=== PATIENT | female | born 1955 | race Caucasian/White ===

== ENCOUNTER 2016-04-20 09:30 | Inpatient (IN) | payer MEDICARE ==
[~2016-04-20] VITALS: Ht 167.6 cm; Wt 137.9 kg
[~2016-04-20 09:30] MED LIST: BREO ELLIPTA 11 EACH INH; CELEXA20 MG PO; HYDROCODON-ACE1 EAC7 PO; IPRAT-ALBUT 0.5-3 ML UPD; KEPPRA250 MG PO; LEVOTHYROXINE137 MCG PO; MOBIC7.5 MG PO; NORCO 10/325 TA1 TA1 PO; PRAVASTATIN SOD10 MG PO; PROPRANOLOL HCL20 MG PO; SYMBICORT 80-10.2 GM INH; SYNTHROID137 MCG PO; VENTOLIN HFA18 GM INH; WELLBUTRIN100 MG PO
[2016-04-20 10:21] LABS: ANION GAP 10.3 mmol/L (8-16); CALCIUM 8.6 mg/dL (8.5-10.1); CARBON DIOXIDE 30.5 mmol/L (21.0-32.0); POTASSIUM - SERUM 4.8 mmol/L (3.5-5.1)
[2016-04-20 10:24] LABS: BASOPHILS 0.7 % (0.0-2.0); EOSINOPHILS 1.8 % (0-7); HEMOGLOBIN 13.7 g/dL (12-16); IMMATURE GRANULOCYTES 0.3 % (0-5); LYMPHOCYTES 32.7 % (15-50); MCH 29.9 pg (26.0-34.0); MCHC 31.9 g/dL (31.0-37.0); MCV 93.9 fL (80.0-100.0); MEAN PLATELET VOLUME 10.8 fL (7.4-10.4); MONOCYTES 6.9 % (2-11); NEUTROPHILS 57.6 % (40-80); PLATELET COUNT 215 10x3/uL (130-400); RBC 4.58 10x6/uL (4.00-5.40); RDW 12.4 % (11.5-14.5); WBC 7.2 10x3/uL (4.8-10.8)
[2016-04-20 10:28] LABS: APTT 27.2 SECONDS (22.8-39.4); INR 0.99 (0.85-1.17); PROTIME 12.9 SECONDS (11.6-15.0)
[2016-04-20 10:34] LABS: APPEARANCE CLEAR (CLEAR); BACTERIA FEW /hpf (NONE SEEN); BILIRUBIN NEGATIVE (NEGATIVE); COLOR YELLOW (YELLOW); EPITHELIAL CELLS 0-5 /hpf (0-5); GLUCOSE NEGATIVE (NEGATIVE); KETONE NEGATIVE (NEGATIVE); LEUKOCYTE ESTERASE NEGATIVE (NEGATIVE); MUCUS <1+ /lpf (NONE SEEN); NITRITE NEGATIVE (NEGATIVE); PROTEIN TRACE mg/dL (NEGATIVE); RED CELLS - URINE OCC /hpf (0-5); SPECIFIC GRAVITY 1.025 (1.005-1.020); WHITE CELLS - URINE RARE /hpf (0-5)
[2016-04-25] VITALS (12 sets, daily range): BP systolic 93–136; BP diastolic 50–71; BMI 49.1
--- NOTE | 2016-04-25 08:25 | NUR ---
[address] MICHAUD AND ANESTHESIA.
--- NOTE | 2016-04-25 09:42 | NUR ---
ORTHO PEG BOARD USED FOR POSITIONING PT LATERALLY. RT HIP,LEG AND FOOT WASHED WITH HIBICLENS AND ALCOHOL PRIOR TO CHLORPREP PER DN
--- NOTE | 2016-04-25 13:05 | NUR ---
PT RECIEVED FROM PACU. HARD TO AROUSE BUT WILL SLOWLY. NO NARCOTICS ON BOARD AT THIS MOMENT. LUNG SOUNDS DIMINSHED ALL LOBES OXYGEN AT 3LNC. OXYGEN CANNULA PLACED IN MOUTH DUE TO MOUTH BREATHING. SCDS ON BILAT. PROVENA WOUND VAC NOTED TO RIGHT HIP. CALL LIGHT IN REACH. BED ALARM ON DUE TO PATIENT SAFETY. FAMILY AT BEDSIDE
--- NOTE | 2016-04-25 18:17 | NUR ---
NO NEEDS AT THIS TIME FOR PATIENT. STATES FEELS GOOD AND NO PAIN. BED ALARM ON FOR SAFETY
--- NOTE | 2016-04-25 19:35 | NUR ---
RECIEVED SHIFT REPORT. PT IS LYING IN BED. ALERT AND ORIENTED AND ABLE TO VERBALIZE NEEDS. IV IS PATENT AND FLUIDS ARE RUNNING PER ORDER. O2 @ 3 PER NASAL CANNULA. DRESSING TO RIGHT HIP C/D/I. PROVENA WOUND VAC IN PLACE. PT DENIES ANY PAIN AT THIS TIME. NO NEEDS ARE VERBALIZED AT THIS TIME. WILL CONTINUE TO MONITOR. SIDE RAILS ARE UP X 2. BED IS IN LOWEST POSITION. BED ALARM IS ON FOR SAFETY. CALL LIGHT IS WITHIN REACH.
--- NOTE | 2016-04-25 23:27 | NUR ---
SHIFT ASSESSMENT COMPLETED. NIGHT MEDS GIVEN WITH NO PROBLEMS. NO NEEDS ARE VOICED. WILL MONITOR. SIDE RAILS X 2. BED LOW. BED ALARM ON. CALL LIGHT IN REACH.
[2016-04-26 05:00] VITALS: BP 129/66
[2016-04-26 05:51] LABS: BASOPHILS 0.2 % (0.0-2.0); EOSINOPHILS 0 % (0-7); HEMATOCRIT 38.5 % (36.0-48.0); HEMOGLOBIN 11.7 g/dL (12-16); IMMATURE GRANULOCYTES 0.2 % (0-5); LYMPHOCYTES 12.1 % (15-50); MCH 28.9 pg (26.0-34.0); MCHC 30.4 g/dL (31.0-37.0); MCV 95.1 fL (80.0-100.0); MEAN PLATELET VOLUME 10.5 fL (7.4-10.4); MONOCYTES 9.3 % (2-11); NEUTROPHILS 78.2 % (40-80); PLATELET COUNT 201 10x3/uL (130-400); RBC 4.05 10x6/uL (4.00-5.40); RDW 12.4 % (11.5-14.5); WBC 13.2 10x3/uL (4.8-10.8)
[2016-04-26 06:04] LABS: ALBUMIN 2.7 g/dL (3.4-5.0); ANION GAP 10.8 mmol/L (8-16); BILIRUBIN - TOTAL 0.28 mg/dL (0.2-1.3); CALCIUM 8.5 mg/dL (8.5-10.1); CREATININE - SERUM 1.1 mg/dL (0.6-1.3); POTASSIUM - SERUM 4.8 mmol/L (3.5-5.1)
[2016-04-26 08:11] VITALS: BP 123/61
--- NOTE | 2016-04-26 08:19 | NUR ---
PT SEEN AND ASSESSED. COMPLAINTS OF MILD PAIN07/10. PROVENA WOUND VAC NOTED TO RIGHT HIP. ICE CURRENTLY IN PLACE ALSO. ABLE TO MOVE TOES FREELY AND ARE WARM AND PINK. BED ALARM ON FOR SAFETY. CALL LIGHT IN PLACE
--- NOTE | 2016-04-26 10:50 | NUR ---
WOUND CARE CONSULT: PT IS S/P RIGHT TOTAL HIP ON 04/[address] MICHAUD. PREVENA DRESSING - INCISION MGMT SYSTEM IN PLACE OVER RIGHT HIP INCISION. NO COMPLAINTS OR QUESTIONS. WILL MONITOR NEEDED.
--- NOTE | 2016-04-26 11:21 | NUR ---
* Is the patient Alert and Oriented? Yes 0 * How many steps to enter\exit or inside your home? Ramp 0 * PCP Dr. Singh 0 * Pharmacy [address] 0 * Preadmission Environment Home with Family 0 * ADLs Independent 0 * Equipment Nebulizer Oxygen 0 * List name and contact numbers for known caregivers / representatives who currently or will assist patient after discharge: Spouse - Johnson [phone] 0 * Additional services required to return to the preadmission environment? Yes 0 * Can the patient safely return to the preadmission environment? Yes 0 * Has this patient been hospitalized within the prior 30 days at any hospital? No 04/26/2016 11:25 DCP: Discharge Planning Patient Name: MAC KRAUS Admission Status: Elective Accout number: [id number] Admission Date: 04-25-2016 : 1955 Admission Diagnosis: Attending: WALTER Current LOS: 1 Anticipated DC Date: 04-27-2016 Planned Disposition: Outpatient PT\OT Primary Insurance: [facility] Discharge Planning Comments: CM met with patient to assess dc plans/needs. Patient states she lives at home with her , Johnson. She was independent with ADL's prior to admission. She has a cane & home O2 & Nebs at home. A rolling walker has been ordered by MD office prior to admission through [facility] & will be delivered to hospital prior to dc. She has chosen [facility] for outpatient physical therapy. Appt. scheduled 04/28 @ 1500 - Rx faxed. Anticipate dc tomorrow afternoon. CM will follow. Flosser: Eva Murphy
[2016-04-26 12:13] VITALS: BP 124/54
[2016-04-26 12:49] VITALS: Ht 167.6 cm; Wt 137.9 kg
[2016-04-26 15:59] VITALS: BP 116/62
--- NOTE | 2016-04-26 18:15 | NUR ---
PT UNABLE TO VOID. IN AND OUT CATHETERIZED WITH 600 CC URINE RETURNED. STATES FEELS BETTER. PROVENA WOUND VAC STILL IN PLACE. NO COMPLAINTS AT PRESENT. BED ALARM ON FOR SAFETY
[2016-04-26 19:00] VITALS: BP 127/59
--- NOTE | 2016-04-26 19:20 | NUR ---
RECIEVED SHIFT REPORT. PT IS LYING IN BED. ALERT AND ORIENTED AND ABLE TO VERBALIZE NEEDS. IV IS PATENT AND SALINE LOC AT THIS TIME. PT HAS BEEN AMBULATORY WITH ASSISTANCE. DRESSING TO RIGHT HIP C/D/I. PROVENA WOUND VAC IN PLACE. O2 @ 3 PER NASAL CANNULA. PT STATES PAIN IS 4/10. NO NEEDS ARE VERBALIZED AT THIS TIME. WILL CONTINUE TO MONITOR. SIDE RAILS ARE UP X 2. BED IS IN LOWEST POSITION. BED ALARM IS ON FOR SAFETY. CALL LIGHT IS WITHIN REACH.
--- NOTE | 2016-04-26 21:57 | NUR ---
SHIFT ASSESSMENT COMPLETED. NIGHT MEDS GIVEN WITH NO PROBLEMS. NO NEEDS ARE VOICED. WILL MONITOR. SIDE RAILS UP X 2. BED IS LOW. BED ALARM ON. CALL LIGHT IN REACH.
--- NOTE | 2016-04-27 03:03 | NUR ---
PT STATES POSSIBLE URGE TO VOID. ASSITED X 3 ASSIST AND WALKER TO BEDSIDE COMMODE. PT VOID 200ML CONCENTRATED URINE. PT VERBALIZED WANT TO SIT UP IN CHAIR. ASSITED TO CHAIR WITH SAME ASSIST. FRESH GLASS ICE WATER PROVIDED. NO FURTHER NEEDS AT THIS TIME. WILL MONITOR. CALL LIGHT AND OTHER PERSONAL ITEMS PLACED IN REACH AT THIS TIME.
[2016-04-27 05:20] LABS: BASOPHILS 0.2 % (0.0-2.0); EOSINOPHILS 0.7 % (0-7); HEMATOCRIT 35.6 % (36.0-48.0); HEMOGLOBIN 10.8 g/dL (12-16); IMMATURE GRANULOCYTES 0.3 % (0-5); LYMPHOCYTES 20.7 % (15-50); MCH 29.1 pg (26.0-34.0); MCHC 30.3 g/dL (31.0-37.0); MONOCYTES 8.8 % (2-11); NEUTROPHILS 69.3 % (40-80); PLATELET COUNT 168 10x3/uL (130-400); RBC 3.71 10x6/uL (4.00-5.40); RDW 12.8 % (11.5-14.5); WBC 11.4 10x3/uL (4.8-10.8)
[2016-04-27 05:48] LABS: ALBUMIN 2.5 g/dL (3.4-5.0); ANION GAP 8.8 mmol/L (8-16); BILIRUBIN - TOTAL 0.24 mg/dL (0.2-1.3); CALCIUM 8.5 mg/dL (8.5-10.1); CARBON DIOXIDE 30.6 mmol/L (21.0-32.0); CREATININE - SERUM 1.2 mg/dL (0.6-1.3); POTASSIUM - SERUM 4.4 mmol/L (3.5-5.1); PROTEIN - SERUM 5.6 g/dL (6.4-8.2)
--- NOTE | 2016-04-27 07:00 | NUR ---
REPORT RECIEVED ASSUMED CARE. PATIENT IN BED WITH IV INTACT. NO COMPLAINTS. CALL LIGHT WITHIN REACH. BSCDS ON AND WORKING. BED ALARM ON.
[2016-04-27 07:59] VITALS: BP 124/66
--- NOTE | 2016-04-27 08:25 | NUR ---
PATIENT ASSESSMENT COMPLETE, VS STABLE. WOUND VAC TO RIGHT HIP INTACT. NO COMPLAINTS AT THIS TIME. NO REDNESS NOTED TO BACK OR BUTTOCKS. ASSISTED PATIENT UP TO BSC WITH PT. CALL LIGHT WITHIN REACH.
--- NOTE | 2016-04-27 08:25 | OP ---
PATIENT NAME: MAC KRAUS MEDICAL RECORD: [id number] :[birth year] LOCATION:D.MS [id number] ADMISSION DATE:04/25/16 SURGEON: XIAO GERARD MD DATE OF OPERATION: 04/25/2016 PREOPERATIVE DIAGNOSIS: Right hip degenerative joint disease. POSTOPERATIVE DIAGNOSIS: Right hip degenerative joint disease. PROCEDURE PERFORMED: Right total hip arthroplasty. SURGEON: Garland Gerard MD ANESTHESIA: General with a block for postop pain. CONDITION: She tolerated the procedure well and was transferred to the recovery room in stable condition at termination of procedure. INDICATIONS: This is a 61-year-old morbidly obese female with significant degenerative changes in her hip. She is no longer tolerating her hip pain. She wants to proceed with a hip replacement. We discussed risks, benefits, and alternatives including blood loss, scar, pain, infection, need for further procedure, anesthesia risk, nerve, artery and vein injuries. She understood and wished to proceed. OPERATIVE REPORT: The patient was taken to the operating room, placed in supine position. General anesthesia was obtained. She had the block placed in the preop holding area. In the operating room, the right hip was confirmed to be the correct joint, following which she was prepped and draped in the normal fashion. She was placed in lateral position with the right hip up. She did receive her Ancef per protocol. The hip was prepped in a normal fashion followed by secondary ChloraPrep and then Ioban dressing placement. After this was accomplished, a lateral incision was made. This was taken down to the IT band, which was very deep with a very large layer of obesity. I then proceeded to split her IT band. After ____, I took off the edge portion of the gluteus medius and the capsule as a unit. The hip was dislocated. The femoral head was removed. Anterior and posterior acetabular retractors were placed. The soft tissue was removed from about the acetabular rim. Once this was accomplished, I then proceeded to ream up to a size 51 and then placed a 52 press fit cup. This fit very well. I then took the leg off at the side bed, broached up to an 11 and trialed with an 11 standard neck. We did take x-rays, this did show that it looked to be a little bit short. We therefore decided to place a high offset with a +3. This was placed with an 11 stem. She was reduced, but good overall. I copiously irrigated, following which I placed the gluteus medius capsule back to the greater trochanter with 2 JuggerKnot suture anchors. I then closed the IT band with #5 Ethibond. I then closed with 2-0 Vicryl and peewee and placed Prevena dressing. Certainly, I then proceeded to flip her back this to supine position, awakened and returned back to the recovery room in stable condition. This was very difficult secondary to her morbid obesity. TRANSINT:[id number] Voice Confirmation ID: [id number] DOCUMENT ID: [id number] OPERATIVE REPORT [id number] MAC KRAUS, XIAO PERDUE MD at 0825 CC: [id number] DICTATION DATE: 04/25/16 1106 DYE HOUSE WHEEL OPERATOR: 04/25/16 1128 ADM IN [facility] [address] [place] [address]
--- NOTE | 2016-04-27 08:39 | NUR ---
PATIENT UP AMBULATING IN [facility] WITH PT. NO PROBLEMS AT THIS TIME.
[2016-04-27] MEDS ORDERED: ELIQUIS2.5 MG PO (11:01)
[2016-04-27] MEDS ORDERED: OXYCODONE HCL5 MG PO (11:03)
--- NOTE | 2016-04-27 13:23 | NUR ---
04/27/2016 13:14 DCP: Discharge Planning Patient Name: MAC KRAUS Encounter No: [id number] : 1955 Primary Insurance: [facility] Anticipated DC Date: 04-27-2016 Planned Disposition: Outpatient PT\OT External Planned Provider: [facility] DCP follow-up note: Patient experiencing increase in pain. Ambulated well with physical therapy but had a difficult time getting back into bed. Discussed with patient & interdisciplinary team - will hold discharge until tomorrow. OP physical therapy appt. changed to 05/02 @ 1400 @ [facility]. Patient and family in agreement with discharge plan. Case management will follow and assist as needed. Eva Murphy
[2016-04-27 15:38] VITALS: BP 114/59
--- NOTE | 2016-04-27 20:36 | NUR ---
PATIENT IN SEMI-FOWLERS POSTION. PATIENT STATED SHE DOES NOT NEED ANYTHING AT THIS TIME.
[2016-04-28 05:30] LABS: BASOPHILS 0.1 % (0.0-2.0); EOSINOPHILS 2.3 % (0-7); HEMATOCRIT 34.8 % (36.0-48.0); HEMOGLOBIN 10.4 g/dL (12-16); IMMATURE GRANULOCYTES 0.1 % (0-5); LYMPHOCYTES 21.8 % (15-50); MCH 28.8 pg (26.0-34.0); MCHC 29.9 g/dL (31.0-37.0); MCV 96.4 fL (80.0-100.0); MEAN PLATELET VOLUME 10.8 fL (7.4-10.4); MONOCYTES 8.7 % (2-11); PLATELET COUNT 174 10x3/uL (130-400); RBC 3.61 10x6/uL (4.00-5.40); RDW 12.9 % (11.5-14.5); WBC 10.1 10x3/uL (4.8-10.8)
[2016-04-28 05:58] LABS: ALBUMIN 2.5 g/dL (3.4-5.0); ANION GAP 9.7 mmol/L (8-16); BILIRUBIN - TOTAL 0.33 mg/dL (0.2-1.3); CALCIUM 8.5 mg/dL (8.5-10.1); CARBON DIOXIDE 30.7 mmol/L (21.0-32.0); POTASSIUM - SERUM 4.4 mmol/L (3.5-5.1); PROTEIN - SERUM 5.8 g/dL (6.4-8.2)
[2016-04-28 08:03] VITALS: BP 110/54
--- NOTE | 2016-04-28 08:40 | NUR ---
04/28/2016 8:37 DCP: Discharge Planning Patient Name: MAC KRAUS Encounter No: [id number] : 1955 Primary Insurance: [facility] Anticipated DC Date: 04-27-2016 Planned Disposition: Outpatient PT\OT External Planned Provider: [facility] DCP follow-up note: DC Order rec'd. Patient had a better night & is ready to go home. Patient and family in agreement with discharge plan. No changes to plan. Eva Murphy
[2016-04-28] MEDS ORDERED: ULTRAM50 MG PO (10:24)
--- NOTE | 2016-04-28 11:00 | NUR ---
PATIENT RECIEVED DISCHARGE INSTRUCTIONS. VERBALIZED UNDERSTANDING. NO QUESTIONS AT THIS TIME. IV REMOVED WITH CATH TIP INTACT. PRESCRIPTION GIVEN TO PATIENT. AWAITING WC FOR DC. CALL LIGHT WITHIN REACH.
--- NOTE | 2016-05-03 07:00 | DS ---
PATIENT:MAC KRAUS :[birth year] MEDICAL RECORD: [id number] DISCHARGE SUMMARY ADMISSION DATE: 04/25/16 DISCHARGE DATE: 04/28/16 ADMITTING DIAGNOSES: 1. Right hip degenerative joint disease. 2. Morbid obesity. DISCHARGE DIAGNOSES: 1. Right hip degenerative joint disease. 2. Morbid obesity. 3. Postoperative acute blood loss anemia. HISTORY OF PRESENT ILLNESS: This is a 61-year-old female with advanced degenerative changes of her right hip. She presents for a right total hip arthroplasty. She has actually done very well postoperatively. She has ____, but she has been able to get up with assistance. It is felt that she is at a juncture, she can be discharged to home to continue on total hip arthroplasty protocols outpatient. She is going to continue on Eliquis for anticoagulation and pain medications. She does have a Prevena dressing on this and is to stay on until the failure of the batteries at which time, she needs to change the dressing. This needs to be clean and dry, otherwise. She is to see me back in the office in about 2 weeks, call if she is having any problems. TRANSINT:[id number] Voice Confirmation ID: [id number] DOCUMENT ID: [id number] XIAO MICHAUD MD at 0700 CC: [id number] DICTATION DATE: 04/27/16819 COUNTER CLERK [employer]: 04/27/16 0849 DIS IN 04/28/16 [place] [id number] [place] [id number]
== END 2016-04-28 14:25 | disposition home or self-care (01) | DRG 470 ==
LOC: D.SDCHOLD 09:30 → D.MS 04-25 06:06 → D.SDCHOLD 04-25 07:30 → D.MS 04-25 09:13 → D.SDCHOLD 04-25 09:15 → D.MS 04-28 14:25
PROVIDERS: Family Medicine; ADMIT Orthopaedic Surgery Sports Medicine
PROC: 0SR90JA Replacement of Right Hip Joint with Synthetic Substitute, Uncemented, Open Approach (ICD-10-PCS; principal; 2016-04-25 09:15)
DX: M16.11 Unilateral primary osteoarthritis, right hip (principal); Z68.42 Body mass index [BMI] 45.0-49.9, adult; D62 Acute posthemorrhagic anemia; E66.01 Morbid (severe) obesity due to excess calories; J44.9 Chronic obstructive pulmonary disease, unspecified; E03.9 Hypothyroidism, unspecified; I50.9 Heart failure, unspecified

== ENCOUNTER → 2016-08-17 07:26 | Outpatient (CLI) | payer MEDICARE ==
[2016-04-26 12:49] VITALS: BMI 49.0
[~2016-08-17 07:26] MED LIST changes: +ELIQUIS2.5 MG PO; +OXYCODONE HCL5 MG PO; +ULTRAM50 MG PO
== END | disposition home or self-care (01) ==
LOC: D.RT 07:26
DX: J98.11 Atelectasis (principal)

== ENCOUNTER 2016-11-17 21:55 | Emergency (ER) | payer MEDICARE ==
[2016-04-26 12:49] VITALS: BMI 49.0
[2016-11-17 22:47] LABS: BASOPHILS 0.6 % (0-2); EOSINOPHILS 2.7 % (0-7); HEMATOCRIT 41.6 % (36.0-48.0); IMMATURE GRANULOCYTES 0.4 % (0-5); LYMPHOCYTES 34.4 % (15-50); MCH 29.7 pg (26.0-34.0); MCHC 31.3 g/dL (31.0-37.0); MEAN PLATELET VOLUME 9.9 fL (7.4-10.4); MONOCYTES 6.1 % (2-11); NEUTROPHILS 55.8 % (40-80); PLATELET COUNT 208 10x3/uL (130-400); RBC 4.38 10x6/uL (4.00-5.40); RDW 12.9 % (11.5-14.5); WBC 8.2 10x3/uL (4.8-10.8)
[2016-11-17 22:54] LABS: ANION GAP 8.5 mmol/L (8-16); CALCIUM 8.8 mg/dL (8.5-10.1); CARBON DIOXIDE 32.8 mmol/L (21.0-32.0); CREATININE - SERUM 1.1 mg/dL (0.6-1.3); POTASSIUM - SERUM 4.3 mmol/L (3.5-5.1)
== END 2016-11-18 00:25 | disposition home or self-care (01) ==
LOC: D.ER 21:55
PROVIDERS: Nurse Practitioner Acute Care
DX: G44.209 Tension-type headache, unspecified, not intractable (principal); M54.12 Radiculopathy, cervical region; M54.2 Cervicalgia

== ENCOUNTER → 2016-12-20 13:33 | Outpatient (CLI) | payer MEDICARE ==
[2016-04-26 12:49] VITALS: BMI 49.0
== END | disposition home or self-care (01) ==
LOC: D.MRI 13:33
DX: R51 Headache (principal)

== ENCOUNTER 2017-04-12 19:11 | Inpatient (IN) | payer MEDICARE ==
[~2017-04-12] VITALS: Ht 167.6 cm; Wt 147.4 kg
[2017-04-12 21:14] LABS: BASOPHILS 0.1 % (0-2); EOSINOPHILS 0.1 % (0-7); HEMATOCRIT 45.9 % (36.0-48.0); HEMOGLOBIN 14.3 g/dL (12-16); IMMATURE GRANULOCYTES 0.3 % (0-5); LYMPHOCYTES 7.8 % (15-50); MCH 29.5 pg (26.0-34.0); MCHC 31.2 g/dL (31.0-37.0); MCV 94.6 fL (80.0-100.0); MEAN PLATELET VOLUME 9.9 fL (7.4-10.4); MONOCYTES 8.9 % (2-11); NEUTROPHILS 82.8 % (40-80); PLATELET COUNT 207 10x3/uL (130-400); RBC 4.85 10x6/uL (4.00-5.40); RDW 12.9 % (11.5-14.5); WBC 19.2 10x3/uL (4.8-10.8)
[2017-04-12 21:34] LABS: ALBUMIN 3.6 g/dL (3.4-5.0); ANION GAP 7.8 mmol/L (8-16); BILIRUBIN - TOTAL 0.72 mg/dL (0.2-1.3); CALCIUM 9.5 mg/dL (8.5-10.1); CARBON DIOXIDE 30.5 mmol/L (21.0-32.0); CREATININE - SERUM 1.1 mg/dL (0.6-1.3); POTASSIUM - SERUM 4.3 mmol/L (3.5-5.1); PROTEIN - SERUM 7.5 g/dL (6.4-8.2)
[2017-04-13] MEDS ORDERED: MOBIC7.5 MG PO (00:40)
[2017-04-13] MEDS ORDERED: SINGULAIR10 MG PO (00:40)
[2017-04-13 00:42] VITALS: BP 120/85; BMI 52.5
[2017-04-13 04:00] VITALS: BP 115/59
[2017-04-13 06:33] LABS: HEMATOCRIT 42.6 % (36.0-48.0); HEMOGLOBIN 13.3 g/dL (12-16); MCH 29.6 pg (26.0-34.0); MCHC 31.2 g/dL (31.0-37.0); MCV 94.7 fL (80.0-100.0); MEAN PLATELET VOLUME 9.9 fL (7.4-10.4); PLATELET COUNT 191 10x3/uL (130-400); RDW 12.8 % (11.5-14.5); WBC 20.1 10x3/uL (4.8-10.8)
[2017-04-13 06:34] LABS: ALBUMIN 3.1 g/dL (3.4-5.0); ANION GAP 13.4 mmol/L (8-16); BILIRUBIN - TOTAL 0.49 mg/dL (0.2-1.3); CARBON DIOXIDE 26.9 mmol/L (21.0-32.0); POTASSIUM - SERUM 4.3 mmol/L (3.5-5.1); PROTEIN - SERUM 7.2 g/dL (6.4-8.2)
[2017-04-13 06:41] LABS: CREATININE - SERUM 1.5 mg/dL (0.6-1.3)
[2017-04-13 07:02] LABS: HYPOCHROMASIA OCC; LYMPHOCYTES 8 % (15-50); MONOCYTES 5 % (2-11); NEUTROPHILS 81 % (40-80); PLATELET ESTIMATE NORMAL; ROULEAUX OCC
[2017-04-13 08:57] VITALS: BP 101/59
[2017-04-13 12:56] VITALS: BP 120/66
[2017-04-13 14:19] VITALS: Ht 167.6 cm; Wt 147.4 kg
[2017-04-13 15:38] LABS: APPEARANCE CLEAR (CLEAR); BILIRUBIN NEGATIVE (NEGATIVE); COLOR DK YELLOW (YELLOW); GLUCOSE NEGATIVE (NEGATIVE); KETONE NEGATIVE (NEGATIVE); NITRITE NEGATIVE (NEGATIVE); PROTEIN NEGATIVE (NEGATIVE); SPECIFIC GRAVITY 1.025 (1.005-1.020); UROBILINOGEN NORMAL (NORMAL)
[2017-04-13 16:45] VITALS: BP 118/59
[2017-04-13 20:00] VITALS: BP 123/68
[2017-04-14] VITALS: BP 136/66
[2017-04-14 06:32] LABS: BASOPHILS 0.1 % (0-2); EOSINOPHILS 0.1 % (0-7); HEMATOCRIT 40.2 % (36.0-48.0); HEMOGLOBIN 12.4 g/dL (12-16); IMMATURE GRANULOCYTES 0.3 % (0-5); LYMPHOCYTES 15.9 % (15-50); MCH 29.5 pg (26.0-34.0); MCHC 30.8 g/dL (31.0-37.0); MCV 95.5 fL (80.0-100.0); MEAN PLATELET VOLUME 10.4 fL (7.4-10.4); MONOCYTES 6.3 % (2-11); NEUTROPHILS 77.3 % (40-80); PLATELET COUNT 197 10x3/uL (130-400); RBC 4.21 10x6/uL (4.00-5.40); WBC 18.4 10x3/uL (4.8-10.8)
[2017-04-14 07:15] LABS: ALBUMIN 3.1 g/dL (3.4-5.0); BILIRUBIN - TOTAL 0.18 mg/dL (0.2-1.3); CREATININE - SERUM 1.8 mg/dL (0.6-1.3); PROTEIN - SERUM 6.9 g/dL (6.4-8.2)
[2017-04-14 08:34] VITALS: BP 129/72
[2017-04-14 12:05] VITALS: BP 129/64
[2017-04-14 16:17] VITALS: BP 139/71
[2017-04-14 22:01] VITALS: BP 128/70
[2017-04-15 00:43] VITALS: BP 127/70
[2017-04-15 05:02] VITALS: BP 131/64
[2017-04-15 05:56] LABS: BASOPHILS 0.1 % (0-2); EOSINOPHILS 0.6 % (0-7); HEMATOCRIT 36.1 % (36.0-48.0); HEMOGLOBIN 10.9 g/dL (12-16); IMMATURE GRANULOCYTES 0.2 % (0-5); LYMPHOCYTES 14.5 % (15-50); MCH 29.1 pg (26.0-34.0); MCHC 30.2 g/dL (31.0-37.0); MCV 96.3 fL (80.0-100.0); MEAN PLATELET VOLUME 10.1 fL (7.4-10.4); MONOCYTES 9.1 % (2-11); NEUTROPHILS 75.5 % (40-80); PLATELET COUNT 178 10x3/uL (130-400); RBC 3.75 10x6/uL (4.00-5.40); RDW 13.2 % (11.5-14.5)
[2017-04-15 06:06] LABS: WBC 13.7 10x3/uL (4.8-10.8)
[2017-04-15 06:31] LABS: ALBUMIN 2.7 g/dL (3.4-5.0); ANION GAP 12.7 mmol/L (8-16); BILIRUBIN - TOTAL 0.2 mg/dL (0.2-1.3); CALCIUM 8.2 mg/dL (8.5-10.1); CREATININE - SERUM 1.2 mg/dL (0.6-1.3); POTASSIUM - SERUM 4.7 mmol/L (3.5-5.1); PROTEIN - SERUM 5.6 g/dL (6.4-8.2)
[2017-04-15 09:30] VITALS: BP 138/73
[2017-04-15] MEDS ORDERED: NICODERM C1 PATCH .2 TRANSDERM (12:02)
[2017-04-15] MEDS ORDERED: MUCINEX600 MG PO (12:03)
[2017-04-15] MEDS ORDERED: TESSALON PERLE100 MG PO (12:03)
[2017-04-15] MEDS ORDERED: FLORAJEN3 CAPS460 MG PO (12:03)
[2017-04-15] MEDS ORDERED: ZITHROMAX250 MG PO (12:04)
[2017-04-15 12:07] VITALS: BP 121/65
[2017-04-15] MEDS ORDERED: AUGMENTIN 875-11 TAB PO (14:25)
== END 2017-04-15 15:00 | disposition home or self-care (01) | DRG 865 ==
LOC: D.ER 19:11 → D.MS 23:37
PROVIDERS: Emergency Medicine; Family Medicine; Physician Assistant Medical
DX: B34.9 Viral infection, unspecified (principal); J18.9 Pneumonia, unspecified organism; Z68.43 Body mass index [BMI] 50.0-59.9, adult; R06.03 Acute respiratory distress; G25.0 Essential tremor; Z99.81 Dependence on supplemental oxygen; J44.9 Chronic obstructive pulmonary disease, unspecified; I50.9 Heart failure, unspecified; F41.9 Anxiety disorder, unspecified; N28.9 Disorder of kidney and ureter, unspecified; F32.9 Major depressive disorder, single episode, unspecified; Z87.891 Personal history of nicotine dependence; E66.01 Morbid (severe) obesity due to excess calories

== ENCOUNTER → 2018-01-10 10:40 | Outpatient (CLI) | payer MEDICARE ==
[2017-04-13 14:19] VITALS: BMI 52.4
[~2018-01-10 10:40] MED LIST changes: +AUGMENTIN 875-11 TAB PO; +FLORAJEN3 CAPS460 MG PO; +MUCINEX600 MG PO; +NICODERM C1 PATCH .2 TRANSDERM; +SINGULAIR10 MG PO; +TESSALON PERLE100 MG PO; +ZITHROMAX250 MG PO
== END | disposition home or self-care (01) ==
LOC: D.RAD 12-21 10:45 → D.RT 12-21 11:00 → D.RAD 10:40
DX: J44.9 Chronic obstructive pulmonary disease, unspecified (principal)

== ENCOUNTER → 2018-03-21 14:25 | Outpatient (CLI) | payer MEDICARE ==
[2017-04-13 14:19] VITALS: BMI 52.4
== END | disposition home or self-care (01) ==
LOC: D.CT 14:25
DX: K42.9 Umbilical hernia without obstruction or gangrene (principal)

== ENCOUNTER 2018-11-01 08:00 | Outpatient (CLI) | payer MEDICARE ==
[2017-04-13 14:19] VITALS: BMI 52.4
== END 2018-11-01 11:00 | disposition home or self-care (01) ==
LOC: D.MAMMO 08:00
PROVIDERS: ATTEND Family Medicine
DX: Z12.31 Encounter for screening mammogram for malignant neoplasm of breast (principal)

== ENCOUNTER 2019-10-04 15:32 | Inpatient (IN) | payer MEDICARE ==
[~2019-10-04] VITALS: Ht 167.6 cm; Wt 155.5 kg
[2019-10-04 16:30] VITALS: BP 119/56
[2019-10-04 17:30] VITALS: BP 103/59
--- NOTE | 2019-10-04 18:05 | NUR ---
Patient report was called to nurse Mares on [facility].Advised that she was getting two patients and asked for a brief interim in between patient admits. She is informed that I would allow the other patient to come up since she had already got report and they were about to transport and will wait approximately 20 minutes and grain picker my patient.
--- NOTE | 2019-10-04 18:35 | NUR ---
pt transferred to the floor at this time
[2019-10-04 20:00] VITALS: BP 120/73
[2019-10-04 20:11] LABS: BASOPHILS 0.2 % (0-2); EOSINOPHILS 0.6 % (0-7); HEMATOCRIT 38.5 % (36.0-48.0); HEMOGLOBIN 11.4 g/dL (12-16); IMMATURE GRANULOCYTES 0.4 % (0-5); LYMPHOCYTES 17.6 % (15-50); MCH 28.6 pg (26.0-34.0); MCHC 29.6 g/dL (31.0-37.0); MCV 96.7 fL (80.0-100.0); MEAN PLATELET VOLUME 9.8 fL (7.4-10.4); MONOCYTES 6.2 % (2-11); RBC 3.98 10x6/uL (4.00-5.40); RDW 12.9 % (11.5-14.5); WBC 11.2 10x3/uL (4.8-10.8)
[2019-10-04 20:15] LABS: PLATELET COUNT 273 10x3/uL (130-400)
[2019-10-04 20:18] LABS: APTT 29.4 SECONDS (22.8-39.4); INR 1.03 (0.85-1.17); PROTIME 13.4 SECONDS (11.6-15.0)
[2019-10-04 20:38] LABS: ALBUMIN 3.3 g/dL (3.4-5.0); ANION GAP 11.8 mmol/L (8-16); BILIRUBIN - TOTAL 0.24 mg/dL (0.2-1.3); CALCIUM 8.9 mg/dL (8.5-10.1); CARBON DIOXIDE 29.8 mmol/L (21.0-32.0); CREATININE - SERUM 1.6 mg/dL (0.6-1.3); POTASSIUM - SERUM 5.6 mmol/L (3.5-5.1)
[2019-10-05] VITALS: BP 126/69
[2019-10-05 03:55] VITALS: BP 133/57
[2019-10-05 04:07] VITALS: BP 120/73; BMI 54.2
[2019-10-05 06:21] LABS: BILIRUBIN NEGATIVE (NEGATIVE); GLUCOSE NEGATIVE (NEGATIVE); KETONE SMALL mg/dL (NEGATIVE); NITRITE NEGATIVE (NEGATIVE); UROBILINOGEN NORMAL (NORMAL)
[2019-10-05 06:22] LABS: EPITHELIAL CELLS 0-5 /hpf (0-5); RED CELLS - URINE 0-5 /hpf (0-5)
[2019-10-05 06:23] LABS: BACTERIA MANY /hpf (NEGATIVE)
--- NOTE | 2019-10-05 07:15 | NUR ---
BEDSIDE SHIFT REPORT RECEIVED, DENIES NEEDS, PT SLEEPING WITH AT BEDSIDE, AROUSED EASILY TO VOICE. O2 3L NC, LEFT WRIST ELEVATED WITH ICE PACK, CALL LIGHT IN REACH, BED LOWEST POSITION, BREATHING SLIGHTLY LABORED, LUNGS DIMINISHED, IV TO RAC PATENT, SCD'S TO BLE APPLIED, WILL CONTINUE TO MONITOR
[2019-10-05 09:02] VITALS: BP 111/55
--- NOTE | 2019-10-05 10:16 | NUR ---
PATIENT EVALUATED IN HOLDING AREA PRIOR TO BLOCK. PATIENT HAD ACTIVE WHEEZING, ANESTHESIA GAVE BREATHING TREATMENT NO IMPROVEMENT. CASE CANCELLED AND PATIENT GETTING PULMONARY WORKUP.
[2019-10-05 12:41] VITALS: BP 102/45
--- NOTE | 2019-10-05 19:01 | NUR ---
I have reviewed this patient and I concur with the Shift Assessment completed by the Licensed Practical Nurse today this shift.
[2019-10-06 01:01] VITALS: BP 93/60
--- NOTE | 2019-10-06 01:39 | NUR ---
PATIENT IN BED RESTING DRESSING INTACT TO LEFT WRIST. AND ELAVATED TELOMETRY IN PLACE 66SR. O2 AT 3LETERS VIA N/C. IV TO RIGHT AC WITH NS PER ORDERS. FOLIE CATH IN PLACE AND PATEN WITH URIN TO BAG. TEMP OF 100.4 TYLENOL 650MG PO GIVEN AT 0047, RECHECK NOW TEMP 100.2 NPO AT MIDNIGHT CALL LIGHT IN REACH
[2019-10-06 04:00] VITALS: BP 152/69
--- NOTE | 2019-10-06 07:25 | NUR ---
PATIENT ALERT AND ORIENTED. RESTING QUILETY IN BED. RESPIRATIONES EVEN NON LBAORED. NO SIGNS OF DISTRESS NOTED. RIGHT AC IV NORMAL SALINE AT 75ML/HR. O2 AT 3L. PATIENT WEARS GLASSES. HAS DENTURES. HAS KEATING IN PLACE. FAMILY BY BEDSIDE. SIDE RAILS UP X3. CALL LIGHT IN REACH. WILL CONTINUE TO MONITOR FOR SAFETY.
[2019-10-06 09:12] VITALS: BP 101/46
--- NOTE | 2019-10-06 10:37 | NUR ---
I have reviewed this patient and I concur with the Shift Assessment completed by the Licensed Practical Nurse today this shift.
[2019-10-06 10:53] LABS: BASOPHILS 0.3 % (0-2); EOSINOPHILS 0.9 % (0-7); HEMATOCRIT 33.9 % (36.0-48.0); HEMOGLOBIN 9.7 g/dL (12-16); IMMATURE GRANULOCYTES 0.3 % (0-5); LYMPHOCYTES 17.5 % (15-50); MCH 28.4 pg (26.0-34.0); MCHC 28.6 g/dL (31.0-37.0); MEAN PLATELET VOLUME 9.5 fL (7.4-10.4); MONOCYTES 10.1 % (2-11); NEUTROPHILS 70.9 % (40-80); PLATELET COUNT 237 10x3/uL (130-400); RBC 3.41 10x6/uL (4.00-5.40); RDW 13.3 % (11.5-14.5); WBC 10.4 10x3/uL (4.8-10.8)
[2019-10-06 10:54] LABS: MCV 99.4 fL (80.0-100.0)
[2019-10-06 11:15] LABS: ALBUMIN 2.8 g/dL (3.4-5.0); ANION GAP 8.6 mmol/L (8-16); BILIRUBIN - TOTAL 0.26 mg/dL (0.2-1.3); CARBON DIOXIDE 28.2 mmol/L (21.0-32.0); CREATININE - SERUM 3.9 mg/dL (0.6-1.3); POTASSIUM - SERUM 5.8 mmol/L (3.5-5.1); PROTEIN - SERUM 6.1 g/dL (6.4-8.2)
[2019-10-06 12:38] VITALS: BP 97/45
--- NOTE | 2019-10-06 12:53 | NUR ---
PATIENT ALERT AND ORIENTED. SITTING UP EATING IN BED WITH ASSISTANCE FROM FAMILY. RESPIRATIONS EVEN NON LABORED. NO SIGNS OF DISTRESS NOTED. DENIES FURTHER NEEDS. SIDE RAILS UP X3. CALL LIGHT IN REACH. WILL CONTINUE TO MONITOR FOR SAFETY.
--- NOTE | 2019-10-06 18:16 | NUR ---
PATIENT ALERT AND ORIENTED. RESTING WITH EYES OPEN. FAMILY AT BEDSIDE. RESPIRATIONS EVEN NON LABORED.NO SIGNS OF DISTRESS NOTED. DENIES FURTHER NEEDS. SIDE RAILS UP X3. CALL LIGHT IN REACH. WILL CONTINUE TO MONITOR FOR SAFETY.
[2019-10-06 18:45] VITALS: BP 128/55
[2019-10-06 20:00] VITALS: BP 107/65
--- NOTE | 2019-10-06 20:00 | NUR ---
ALERT RESTING IN BED, TWIN WRAP DRESSING INTACT TO LEFT FOREARM, DENIES PAIN OR NEEDS AT THIS TIME, SEE SHIFT ASSESSMENT, CALL LIGHT IN REACH
--- NOTE | 2019-10-06 21:50 | NUR ---
CRYING WITH PAIN TO LEFT ARM, MORPHINE GIVEN ORDERED
[2019-10-07 04:00] VITALS: BP 110/54
[2019-10-07 05:25] LABS: BASOPHILS 0.3 % (0-2); EOSINOPHILS 2.8 % (0-7); HEMATOCRIT 34.7 % (36.0-48.0); IMMATURE GRANULOCYTES 0.1 % (0-5); LYMPHOCYTES 19.2 % (15-50); MCH 28.6 pg (26.0-34.0); MCHC 28.8 g/dL (31.0-37.0); MCV 99.1 fL (80.0-100.0); MEAN PLATELET VOLUME 9.5 fL (7.4-10.4); MONOCYTES 9.1 % (2-11); NEUTROPHILS 68.5 % (40-80); PLATELET COUNT 221 10x3/uL (130-400); RDW 13.2 % (11.5-14.5); WBC 9.3 10x3/uL (4.8-10.8)
[2019-10-07 05:55] LABS: ALBUMIN 2.6 g/dL (3.4-5.0); ANION GAP 10.9 mmol/L (8-16); BILIRUBIN - TOTAL 0.31 mg/dL (0.2-1.3); CALCIUM 8.3 mg/dL (8.5-10.1); CARBON DIOXIDE 27.3 mmol/L (21.0-32.0); POTASSIUM - SERUM 5.2 mmol/L (3.5-5.1); PROTEIN - SERUM 6.5 g/dL (6.4-8.2)
[2019-10-07 06:01] LABS: CREATININE - SERUM 2.8 mg/dL (0.6-1.3)
--- NOTE | 2019-10-07 07:44 | NUR ---
PATIENT ALERT AND ORIENTED. RESTING IN BED QUIETLY. FAMILY AT BEDSIDE. RESPIRATIONS EVEN NONLABORED. NO SIGNS OF DISTRESS NOTED. O2 3L NASAL CANNULA. KEATING IN PLACE RIGHT AC IV NORMAL SALINE AT 75ML/HR. DENIES FURTHER NEEDS. SIDE RAILS UP X3. CALL LIGHT IN REACH. WILL CONTINUE TO MONITOR FOR SAFETY.
[2019-10-07 09:01] VITALS: BP 84/63
--- NOTE | 2019-10-07 09:09 | NUR ---
PATIENT ALERT AND ORIENTED. RESTING QUIETLY IN BED EATING BREAKFEST. RESPIRATIONS EVEN NON LABORED. NO SIGNS OF DISTRESS NOTED. IV RIGHT ARM SALINE LOCK. TELEMETRY SINUS RHYTHM 75. AD JUDY X1 ASSIST. DENIES FURHTER NEEDS. SIDE RAILS UP X3. CALL LIGHT IN REACH. WILL CONTINUE TO MONITOR FOR SAFETY.
[2019-10-07 11:59] VITALS: BP 126/52
--- NOTE | 2019-10-07 12:54 | NUR ---
PATIENT ALERT AND ORIENTED. PRE OP COMPLETE PER ORDER. FAMILY AT BEDSIDE. RESPIRATIONS EVEN NON LABORED. NO SIGNS OF DISTRESS. DENIES FURTHER NEEDS. SIDE RAILS UP X3. CALL LIGHT IN REACH. WILL CONTINUE TO MONITOR FOR SAFETY.
[2019-10-07 14:24] VITALS: Ht 167.6 cm; Wt 155.5 kg
[2019-10-07 16:06] VITALS: BP 159/61
--- NOTE | 2019-10-07 16:42 | NUR ---
PATIENT ALERT AND ORIENTED. BACK FROM SURGERY. VITAL SIGNS STABLE. BP 163/54. O2 AT 5L 95%. RESPIRATIONS EVEN NON LABORED. NO SIGNS OF DISTRESS NOTED. FAMILY AT BEDSIDE. DENIES FURTHER NEEDS. SIDE RAILS UP X3. CALL LIGHT IN REACH. WILL CONTINUE TO MONITOR FOR SAFETY.
--- NOTE | 2019-10-07 18:56 | NUR ---
PATIENT RESTING QUIETLY IN BED. EYES CLOSED. RESPIRATIONS EVEN NONLABORED. NO SIGNS OF DISTRESS NOTED. DENIES FURTHER NEEDS. SIDE RAILS UP X4. CALL LIGHT IN REACH. WILL CONTINUE TO MONITOR FOR SAFETY.
--- NOTE | 2019-10-07 19:24 | NUR ---
I have reviewed this patient and I concur with the Shift Assessment completed by the Licensed Practical Nurse today this shift.
--- NOTE | 2019-10-07 19:30 | NUR ---
PT LYING IN BED SLEEPING, LETHARGIC. CONFUSED AND NOT ANSWERING QUESTION WHEN WOKEN. ON BIPAP AT THIS TIME. IV RIGHT AC INFUSING NS @ 75. SCDS ON. VSS. KEATING IN PLACE. LEFT ARM PROPPED ON PILLOW. WILL CTM
[2019-10-07 20:00] VITALS: BP 119/38
--- NOTE | 2019-10-07 21:00 | NUR ---
PT WOULD NOT FOLLOW COMMANDS ENOUGH TO TAKE HS MEDICATION. KEPT FALLING BACK ASLEEP. MEDS HELD AT THIS TIME
[2019-10-08] VITALS: BP 146/42
[2019-10-08 04:00] VITALS: BP 146/57
[2019-10-08 04:51] LABS: BASOPHILS 0.1 % (0-2); EOSINOPHILS 0 % (0-7); HEMATOCRIT 33.8 % (36.0-48.0); IMMATURE GRANULOCYTES 0.2 % (0-5); LYMPHOCYTES 9.9 % (15-50); MCH 28.6 pg (26.0-34.0); MCHC 29.6 g/dL (31.0-37.0); MEAN PLATELET VOLUME 9.9 fL (7.4-10.4); MONOCYTES 5.5 % (2-11); NEUTROPHILS 84.3 % (40-80); PLATELET COUNT 248 10x3/uL (130-400); WBC 9.6 10x3/uL (4.8-10.8)
[2019-10-08 05:12] LABS: MCV 96.6 fL (80.0-100.0)
[2019-10-08 05:24] LABS: ALBUMIN 2.5 g/dL (3.4-5.0); ANION GAP 10.7 mmol/L (8-16); BILIRUBIN - TOTAL 0.19 mg/dL (0.2-1.3); CALCIUM 8.5 mg/dL (8.5-10.1); CARBON DIOXIDE 25.4 mmol/L (21.0-32.0); CREATININE - SERUM 2.1 mg/dL (0.6-1.3); PROTEIN - SERUM 6.6 g/dL (6.4-8.2)
[2019-10-08 05:28] LABS: POTASSIUM - SERUM 6.1 mmol/L (3.5-5.1)
--- NOTE | 2019-10-08 05:50 | NUR ---
DR GARCIA CALLED, UPDATE GIVEN. ORDERS RECIEVED FOR ONE TIME LASIX AND FLUSH KEATING CATH. FLUSHED KEATING AT THIS TIME.
--- NOTE | 2019-10-08 06:29 | OP ---
PATIENT NAME: MAC MUKHERJEE MEDICAL RECORD: [id number] :57 LOCATION: D.2226 ADMISSION DATE:10/05/19 SURGEON: ALFRED ALEJO DO DATE OF OPERATION: 10/07/2019 PROCEDURE PERFORMED: Left distal radius open reduction internal fixation. PREOPERATIVE DIAGNOSIS: Left distal radius intraarticular and comminuted fracture. POSTOPERATIVE DIAGNOSIS: Left distal radius intraarticular and comminuted fracture. INDICATIONS: Ms. Mukherjee is a 64-year-old female who fell on 10/03 and was admitted in anticipation to fix her wrist on 10/04, but when we went to fix this, she was wheezing and had severe COPD and she was not medically stable to do the case. The case was put off for today and had a pulmonary see her, we decided to do a block with her and keep her TIVA, that is what we did. She is very susceptible to any pain medicine and has had a hard time with that. After she was informed of the risks and benefits of procedure, she signed the consent. SURGEON: Alfred Alejo DO DESCRIPTION OF PROCEDURE: The patient was given a block per anesthesia in the preoperative area, she was taken to the operative suite, laid in the supine position. Given the TIVA, and the left upper extremity was prepped and draped in sterile fashion. A time-out was performed, everyone was in agreement of the correct side, site, patient and procedure, then given 2 grams of Ancef. The left upper extremity was then exsanguinated with an Esmarch and the tourniquet was inflated to 250 mmHg, was up for 45 minutes. I then made an incision along the flexor carpi radialis tendon. Careful dissection made down to the tendon. The tendon was then taken radially and the tendon sheath on the volar dorsal side was removed and a careful dissection down to the pronator quadratus and peeled off the radius. The fracture was then noted and then reduced and then a plate was put on. Once the plate was in good position on an Acumed plate, a screw was put in the shaft and then we did the locking type screw through the distal plate onto dorsal side and cinched down and reduced the fracture very nicely. The intra-articular split was put right down the middle and had a volar piece and a dorsal piece. This held the reduction nicely and then 3 more distal screws were put in. Radial styloid was also fractured and put a radial styloid screw into that and then 2 more screws into the shaft when it was locking. Once that was completed, I noticed that the radial styloid would need one more type fixation, I then put an Acutrak screw through the radial styloid, 26, held it very nicely. The tourniquet was then let down and the K-wires were all removed and any bleeding was coagulated with pickup and Bovie. It was then closed by Renee Lucio, certified surgical sampler first, with 3-0 Vicryl in inverted interrupted fashion and Prineo glue, 4-0 Monocryl was then used to place the small jam incision made for the radial styloid screw. She was then dressed with Adaptic, 4 x 4s, cast padding and volar splint placed and wrapped with an [place] wrap, awakened and taken to recovery in stable condition. BLOOD LOSS: Minimal. COMPLICATIONS: None. OPERATIVE REPORT [id number] MAC MUKHERJEE TRANSINT:[id number] Voice Confirmation ID: [id number] DOCUMENT ID: [id number] ALFRED ALEJO DO at 0629 CC: [id number] DICTATION DATE: 10/07/19 1515 DEPUTY SHERIFF GENERALIST/BAILIFF: 10/08/19 0012 [facility] [place] [id number] [place] [address]
[2019-10-08 08:38] VITALS: BP 137/52
--- NOTE | 2019-10-08 09:53 | NUR ---
PT IS MORE AWAKE AND ALERT THIS MORNING, TOOK ALL OF HER MEDICATIONS FOR ME, ABLE TO ANSWER ALL QUESTIONS. PT REQUESTED ZURI BE DC, EXPLAINED THAT WITH HER BUN AND CREATNINE SO ELEVATED WE WILL NEED TO WAIT ON FURTHER LABS AND 'S DECISION. NO OTHER NEEDS AT THIS TIME. CONTINUE WITH PLAN OF CARE
--- NOTE | 2019-10-08 10:34 | NUR ---
PT IS TEARFUL THIS MORNING, STATES SHE DID TAKE HERMEDICATIONS AND WANTS TO GO HOME, EXPLAINED TO PT THAT WE HAVE TO MAKE SURE SHE IS SAFE TO GO HOME AND WILL BE ABLE TO ASSIST IN HER CARE, HER O2 NEEDS TO BE WHERE IT WAS BEFORE SHE CAME IN AND WE NEED TO BE ABLE TO REMOVE HER KEATING CATHETER AND SHE WOULD NEED TO BE ABLE TO VOID. NO OTHER NEEDS AT THIS TIME. CONTINUE WITH PLAN OF CARE
--- NOTE | 2019-10-08 11:36 | NUR ---
PT REQUESTED PAIN MEDICATION, EXPLAINED I HAVE ALREADY GIVEN HER TYLENOL AND IT HAS ONLY BEED 2 HOURS, PT HAS LAB AT 1300 AND IF LABS LOOK IMPROVED WILL ADMINISTER PRN PAIN MEDICATION. ENCOURAGED PT TO CONTINUE MOVING FINGERS IN LEFTR HAND. SPOUSE AT BEDSIDE, CONTINUE WITH PLAN OF CARE
[2019-10-08 12:41] VITALS: BP 135/58
[2019-10-08 12:58] LABS: CALCIUM 8.3 mg/dL (8.5-10.1); CARBON DIOXIDE 29.4 mmol/L (21.0-32.0); CREATININE - SERUM 2.2 mg/dL (0.6-1.3)
[2019-10-08 12:59] LABS: POTASSIUM - SERUM 4.4 mmol/L (3.5-5.1)
--- NOTE | 2019-10-08 14:13 | NUR ---
RECEIVED NURSING MESSAGE FROM KATHRIN TERRELL TO GIVE PT DOSE OF NORCO NOW. SPOKE TO DR ALEJO AT NOON AND WAS ADVISED NOT TO GIVE PT ANY AT THAT TIME. WILL ADMINISTER PRN MEDICATION NOW AND MONITOR VERY CLOSELY
[2019-10-08 17:00] VITALS: BP 138/52
--- NOTE | 2019-10-08 19:27 | NUR ---
I have reviewed this patient and I concur with the Shift Assessment completed by the Licensed Practical Nurse today this shift.
[2019-10-08 20:00] VITALS: BP 142/53
--- NOTE | 2019-10-08 20:30 | NUR ---
MEDICATED WITH NORCO FOR C/O PAIN IN LT WRIST RATING 7. ALERT AND ORIENTED X4. RESP IRREG. O2 @ 3LNC. KEATING CATH PATENT AND DRAINING CLEAR YELLOW URINE. LT FINGERS SWOLLEN AND ARM ELEVATED ON PILLOW. SCDS ON. NONPROD COUGH NOTED. EDEMA NOTED TO BLE. NS @ 75 ML/HR INFUSING IN RT AC. TELEMETRY SHOWS SB WITH RATE OG 58. SR ELEVATED X2. CL IN REACH.
[2019-10-09] VITALS: BP 125/50
--- NOTE | 2019-10-09 00:29 | NUR ---
RESTING WITH EYES CLOSED. NO DISTRESS. CL IN REACH.
[2019-10-09 04:00] VITALS: BP 123/57
--- NOTE | 2019-10-09 04:06 | NUR ---
HAS RESTED WELL TONIGHT. NO DISTRESS. RESP NONLABORED. BIPAP IN USE. CL IN REACH.
[2019-10-09 04:56] LABS: BASOPHILS 0.4 % (0-2); EOSINOPHILS 1.3 % (0-7); HEMATOCRIT 33.2 % (36.0-48.0); HEMOGLOBIN 9.8 g/dL (12-16); IMMATURE GRANULOCYTES 0.2 % (0-5); LYMPHOCYTES 28.6 % (15-50); MCH 28.4 pg (26.0-34.0); MCHC 29.5 g/dL (31.0-37.0); MCV 96.2 fL (80.0-100.0); MEAN PLATELET VOLUME 9.5 fL (7.4-10.4); MONOCYTES 9.9 % (2-11); NEUTROPHILS 59.6 % (40-80); PLATELET COUNT 235 10x3/uL (130-400); RBC 3.45 10x6/uL (4.00-5.40); RDW 13.3 % (11.5-14.5); WBC 8.3 10x3/uL (4.8-10.8)
[2019-10-09 05:14] LABS: ALBUMIN 2.3 g/dL (3.4-5.0); ANION GAP 6.3 mmol/L (8-16); BILIRUBIN - TOTAL 0.18 mg/dL (0.2-1.3); CALCIUM 8.4 mg/dL (8.5-10.1); CARBON DIOXIDE 29.6 mmol/L (21.0-32.0); POTASSIUM - SERUM 4.9 mmol/L (3.5-5.1); PROTEIN - SERUM 6.2 g/dL (6.4-8.2)
[2019-10-09 08:00] VITALS: BP 134/55
--- NOTE | 2019-10-09 08:37 | NUR ---
ASSESSMENT PER FLOW SHEET. PATIENT IS WITHOUT DISTRESS. AT BEDSIDE.TELEMETRY DCD ORDERED.CALL LIGHT IN REACH
[2019-10-09 12:00] VITALS: BP 107/54
[2019-10-09] MEDS ORDERED: TESSALON PERLE100 MG PO (13:39)
[2019-10-09] MEDS ORDERED: OMNICEF300 MG PO (13:40)
--- NOTE | 2019-10-09 15:38 | MORECARE ---
CASE MANAGEMENT DISCHARGE SUMMARY PATIENT: MAC KRAUS UNIT: [id number] ADM DATE: 10/05/19 AGE: 64 : 57 SEX: F ROOM/BED: D.2226 AUTHOR: JOSÉ MIGUEL MA PHYSICIAN: REFERRING PHYSICIAN: MIGUEL ANGEL MEREDITH MD DATE OF SERVICE: 10/09/19 Discharge Plan Patient Name: MAC KRAUS Facility: [facility]:[place] : 1955 Planned Disposition: Home Health Service Anticipated Discharge Date: Discharge Date: Expected LOS: Initial Reviewer: [email or web address] Initial Review Date: 10/09/2019 Generated: 10/09/19 4:38 pm Patient Name: MAC KRAUS Page [id number] at 1538 All edits/amendments must be made on the electronic document DICTATION DATE: 10/09/19 153 [place] ATTACHER: SHEREEN 10/09/19 1538 RPT#: [id number] DC DATE: STATUS: ADM IN [facility] [address] [place] [address] END OF REPORT
--- NOTE | 2019-10-09 15:46 | MORECARE ---
CASE MANAGEMENT DISCHARGE SUMMARY PATIENT: MAC KRAUS UNIT: [id number] ADM DATE: 10/05/19 AGE: 64 : 57 SEX: F ROOM/BED: D.2226 AUTHOR: JOSÉ MIGUEL MA PHYSICIAN: REFERRING PHYSICIAN: MIGUEL ANGEL MEREDITH MD DATE OF SERVICE: 10/09/19 Discharge Plan Patient Name: MAC KRAUS Facility: [facility]:[place] : 1955 Planned Disposition: Home Health Service Anticipated Discharge Date: Discharge Date: Expected LOS: Initial Reviewer: [email or web address] Initial Review Date: 10/09/2019 Generated: 10/09/19 4:45 pm Comments DCP- Discharge Planning Updated by [id number]: Eva Addison on 10/09/19 2:[address] Patient Name: MAC KRAUS Admission Status: ER Accout number: [id number] Admission Date: 10-05-2019 : 1955 Admission Diagnosis:UNSP FRACTURE OF LEFT FOREARM, INIT FOR CLOS FX Attending: KRISTIN Current LOS: 4 Anticipated DC Date: Planned Disposition: Home Health Service Primary Insurance: [facility] [employer] Discharge Planning Comments: CM met with patient at bedside after explaining CM role and obtaining verbal consent. CM discussed availability / needs of home health, REHAB and medical equipment. PATIENT HAS 02 AT HOME. PAULO SIGNED FOR [facility] HH. FAXED TO [facility]. IMM SIGNED. PLANS TO DC TO HOME TODAY. Gift Officer: Eva Addison External Providers [facility] Next Contact Date: Service Request Date: Service Type: Resolution: Reviewer: Comments: Coverage Notice Reviewer: [email or web address] Karlene Addison Notice Issued Date-Time: 10/09/2019 15:43 Notice Type: IM Discharge Notice Notice Delivered To: Patient Relationship to Patient: Freight Hustler Name: Delivery Method: HAND - Hand Delivered Gwen Days: Prior Verbal Notification: Recipient Understood Notice: Yes Recipient Signature: Yes Med Rec Note Co-signed by Attending: Coverage Notice Comment: Reviewer: [email or web address] Karlene Addison Notice Issued Date-Time: 10/09/2019 15:43 Notice Type: Patient Choice Letter Notice Delivered To: Patient Relationship to Patient: Freight Hustler Name: Delivery Method: HAND - Hand Delivered Gwen Days: Prior Verbal Notification: Recipient Understood Notice: Yes Recipient Signature: Yes Med Rec Note Co-signed by Attending: Coverage Notice Comment: [facility] IV Last DP export: 10/09/19 2:38 pm Patient Name: MAC KRAUS Page [id number] at 1546 All edits/amendments must be made on the electronic document DICTATION DATE: 10/09/19 1546 WELL DRILL OPERATOR: SHEREEN 10/09/19 1546 RPT#: [id number] DC DATE: STATUS: ADM IN [facility] [address] [place] [address] END OF REPORT
--- NOTE | 2019-10-09 16:00 | NUR ---
KEATING DCD WITH CATH TIP INTACT,1000CC EMPTIED FROM BAG. IV OUT WITH CATH TIP INTACT.
[2019-10-09] MEDS ORDERED: ULTRAM50 MG PO (16:03)
--- NOTE | 2019-10-09 17:03 | NUR ---
HAS VOIDED 150CC OF URINE IN HAT. DISCHARGE INSTRUCTIONS,STATES UNDERSTANDING. ASSISTING WITH DRESSING FOR TRANSPORT HOME.
--- NOTE | 2019-10-09 17:26 | NUR ---
LEFT UNIT VIA WHEELCHAIR FOR TRANSPORT HOME.
== END 2019-10-09 17:26 | disposition home health service (06) | DRG 510 ==
LOC: D.ER 15:32 → D.MS 16:46 → OBSVTIME 16:46 → D.MS 10-05 16:30
PROVIDERS: Family Medicine; Family Medicine Adult Medicine; Internal Medicine; Orthopaedic Surgery; ADMIT Family Medicine; ATTEND Family Medicine
PROC: 0PSJ04Z Reposition Left Radius with Internal Fixation Device, Open Approach (ICD-10-PCS; principal; 2019-10-07 19:00)
DX: S52.502A Unspecified fracture of the lower end of left radius, initial encounter for closed fracture (principal); J96.22 Acute and chronic respiratory failure with hypercapnia; J96.21 Acute and chronic respiratory failure with hypoxia; N17.9 Acute kidney failure, unspecified; Z68.43 Body mass index [BMI] 50.0-59.9, adult; I50.32 Chronic diastolic (congestive) heart failure; N39.0 Urinary tract infection, site not specified; I13.0 Hypertensive heart and chronic kidney disease with heart failure and stage 1 through stage 4 chronic kidney disease, or unspecified chronic kidney disease; W19.XXXA Unspecified fall, initial encounter; J43.9 Emphysema, unspecified; F41.8 Other specified anxiety disorders; M81.0 Age-related osteoporosis without current pathological fracture; E03.9 Hypothyroidism, unspecified; E66.01 Morbid (severe) obesity due to excess calories; J42 Unspecified chronic bronchitis; E87.5 Hyperkalemia; E78.5 Hyperlipidemia, unspecified; D64.9 Anemia, unspecified; N18.9 Chronic kidney disease, unspecified; S52.612A Displaced fracture of left ulna styloid process, initial encounter for closed fracture; Z99.81 Dependence on supplemental oxygen; Z72.0 Tobacco use

== ENCOUNTER 2020-08-20 09:03 | Day surgery (SDC) | payer OTHER ==
[2020-08-19 13:04] LABS: EOSINOPHILS 1.4 % (0-7); HEMOGLOBIN 12.3 g/dL (12-16); LYMPHOCYTES 22.1 % (15-50); MCH 28.3 pg (26.0-34.0); MCHC 31.4 g/dL (31.0-37.0); MCV 89.9 fL (80.0-100.0); MEAN PLATELET VOLUME 7.6 fL (7.4-10.4); MONOCYTES 6.2 % (2-11); NEUTROPHILS 69.3 % (40-80); PLATELET COUNT 268 10x3/uL (130-400); RBC 4.33 10x6/uL (4.00-5.40); RDW 13.9 % (11.5-14.5); WBC 10.1 10x3/uL (4.8-10.8)
[2020-08-19 13:14] LABS: ANION GAP 11.2 mmol/L (8-16); CALCIUM 9.4 mg/dL (8.5-10.1); CARBON DIOXIDE 29.7 mmol/L (21.0-32.0); CREATININE - SERUM 1.9 mg/dL (0.6-1.3); POTASSIUM - SERUM 4.9 mmol/L (3.5-5.1)
[~2020-08-20] VITALS: Ht 167.6 cm; Wt 142.4 kg
--- NOTE | ~2020-08-20 | OP ---
PATIENT NAME: MAC MUKHERJEE MEDICAL RECORD: [id number] :57 [facility]ATION:[facility] ADMISSION DATE: SURGEON: ALFRED ALEJO DO DATE OF OPERATION: 08/20/2020 PROCEDURE PERFORMED: Left distal radius hardware removal and left open carpal tunnel release. PREOPERATIVE DIAGNOSES: Left distal radius hardware complication and carpal tunnel syndrome. POSTOPERATIVE DIAGNOSES: Left distal radius hardware complication and carpal tunnel syndrome. INDICATIONS: Ms. Mukherjee is a 65-year-old female who had a left distal radius fracture fixed back in October of 2019 and it had fallen apart. She kind of lost to followup and showed up complaining of carpal tunnel symptoms. I told her we would need to remove the plate from her wrist and she would have arthritis most likely afterwards, and we would also open up her carpal tunnel the same time that she had a nerve conduction study showing carpal tunnel syndrome. She is aware of the risks of all this including infection, bleeding, damage to nerves and vessels, need for further surgery, continued pain, loss of motion of the wrist and she signed the consent. SURGEON: Alfred Alejo DO DESCRIPTION OF PROCEDURE: The patient received a block by anesthesia in the preoperative area, was taken to the operative suite, laid in supine position, given light sedation. A block had set up. The left upper extremity was then prepped and draped in sterile fashion. Timeout was performed, everyone was in agreement with the correct site, side, patient, and procedure. She received 2 grams of Ancef preoperatively. We then exsanguinated the left upper extremity with an Esmarch and tourniquet was inflated to 250 mmHg, it was up for 41 minutes. I then made an incision along the fourth ray of the palm and made careful dissection down to the median nerve and released it using a nasal speculum also for exposure, released the whole median nerve proximal and distal. I then went to the wrist and made an incision over the prior incision over the flexor carpi radialis tendon, made careful dissection down to the plate, removed the plate, then made an incision over the radial styloid and removed the radial styloid screw and then the dorsal pin that was used to secure end of the plate, secured the fracture dorsally, was in the joint, removed that by impacting it through the distal radius and going through the radial styloid incision and getting it out. We then let the tourniquet down. Any bleeding was coagulated with bipolar and irrigated and closed in a standard fashion by Chad Robert, certified surgical asst. She was then lightly dressed with a soft dressing and awakened and taken to recovery in stable condition. BLOOD LOSS: Minimal. COMPLICATIONS: None. TRANSINT:[id number] Voice Confirmation ID: [id number] DOCUMENT ID: [id number] OPERATIVE REPORT [id number] MAC MUKHERJEE MICHAEL D, DO CC: [id number] DICTATION DATE: 08/23/208 STRIKE PLATE ATTACHER: 08/25/20 0029 [facility] 08/20/20 [facility] [address] [id number]
--- NOTE | ~2020-08-20 | OP ---
PATIENT NAME: MAC MUKHERJEE MEDICAL RECORD: [id number] :57 LOCATION:[facility] ADMISSION DATE: SURGEON: ALFRED ALEJO DO DATE OF OPERATION: 08/20/2020 PREOPERATIVE DIAGNOSES: Carpal tunnel syndrome of the left wrist and malunion of the left distal radius fracture. POSTOPERATIVE DIAGNOSES: Carpal tunnel syndrome of the left wrist and malunion of the left distal radius fracture. INDICATIONS: Ms. Mukherjee is a 65-year-old female who last summer in September fell and had a very comminuted left distal radius fracture, intraarticular. I did an ORIF and she showed up I believe a month later with it fallen apart. She was not in a stable point for surgery at that point and then she came back to me after December, I believe the spring, having carpal tunnel symptoms. I got her test and she did indeed have carpal tunnel syndrome with ulnar nerve conduction study and I told her that we would remove the hardware from her wrist due to the fact it did not hold. She was okay with that and aware of the risks including infection, bleeding, damage to nerves or vessels, need for further surgery, continued pain, blood clots and even and she signed the consent. SURGEON: Alfred Alejo DO DESCRIPTION OF PROCEDURE: The patient received a block by anesthesia in preoperative area, given 2 grams of Ancef preoperatively, taken to the operative suite, laid in supine position and given light sedation. The left upper extremity was then prepped and draped in sterile fashion. Timeout was performed, everyone was in agreeance with the correct side, site, patient and procedure. I then began by using Esmarch and exsanguinated the left upper extremity, tourniquet was inflated to 250 mmHg, it was up for 31 minutes. I then did an open carpal tunnel release along the fourth ray. Made careful dissection down through the skin to the median nerve and released it and used a nasal speculum also to go proximal and distal to ensure there was a full release. I then made an incision over the prior incision for the distal radius, made careful dissection down to the plate, removed the screws and then removed the radial styloid screw and punched the piece that was supposed to be holding dorsal fracture, punched it through the distal radius and then removed it. I then also made an incision over the radial styloid to remove that screw. I pulled it out through that one. I then got x-rays and confirmed that the hardware was gone. We then let the tourniquet down. Any bleeding was coagulated with the pickup and a bipolar, then irrigated thoroughly. Chad Robert, [employer] certified network professional injected 0.25% Marcaine with epinephrine about 10 mL of it in all the sites, he then closed in a normal fashion and then dressed it with Adaptic, 4 x 4s, cast padding and a Coban lightly wrapped. She was then awakened and taken to recovery in stable condition. BLOOD LOSS: Minimal. COMPLICATIONS: None. TRANSINT:[id number] Voice Confirmation ID: [id number] DOCUMENT ID: [id number] OPERATIVE REPORT [id number] MAC MUKHERJEE MICHAEL D, DO CC: [id number] DICTATION DATE: 08/20/20 1316 SEED AND FERTILIZER SPECIALIST: 08/20/20 1703 [facility] 08/20/20 [facility] [address] [place] [address]
[~2020-08-20 09:03] MED LIST changes: +LISINOPRIL5 MG PO; +OMNICEF300 MG PO; +TRAZODONE HCL50 MG PO; +ZONEGRAN100 MG PO
[2020-08-20 09:29] VITALS: BP 114/74; Ht 167.6 cm; Wt 142.4 kg
--- NOTE | 2020-08-20 16:55 | NUR ---
1230 ARRIVED IN MODERATE PAIN TO HIPS AND BACK. MOANING. O2 SATS LOW HR LOW AND B/P LOW. PT TURNED TO LEFT SIDE. 1300 MEDICATED FOR PAIN. PT HAS HOME O2 3 LITERS AND HAS PORTABLE O2. 1330 PT SITTING UP IN BED AND B/P GETTING BETTER. PAIN EASING SOME. INSTRUCTIONS GIVEN AND FAMILY CALLED TO FELT CHECKER PT.
--- NOTE | 2020-08-20 16:59 | NUR ---
1400 IV REMOVED AND PRESSURE HELD.
== END 2020-08-20 14:22 | disposition home or self-care (01) ==
LOC: D.OPS 09:03
PROVIDERS: Anesthesiology; ATTEND Orthopaedic Surgery
DX: G56.02 Carpal tunnel syndrome, left upper limb (principal); S52.502P Unspecified fracture of the lower end of left radius, subsequent encounter for closed fracture with malunion; X58.XXXD Exposure to other specified factors, subsequent encounter; T84.498A Other mechanical complication of other internal orthopedic devices, implants and grafts, initial encounter; K43.2 Incisional hernia without obstruction or gangrene; J44.9 Chronic obstructive pulmonary disease, unspecified; G47.33 Obstructive sleep apnea (adult) (pediatric); J45.909 Unspecified asthma, uncomplicated; R06.09 Other forms of dyspnea; J30.9 Allergic rhinitis, unspecified; J96.12 Chronic respiratory failure with hypercapnia; R40.0 Somnolence; E66.01 Morbid (severe) obesity due to excess calories; I27.20 Pulmonary hypertension, unspecified; I50.32 Chronic diastolic (congestive) heart failure; R94.2 Abnormal results of pulmonary function studies